=== PATIENT | female | born 1950 | race Caucasian/White ===

== ENCOUNTER 2016-03-10 12:10 | Emergency (ER) | payer MEDICARE, OTHER ==
[2016-03-10 12:28] VITALS: BP 139/81; PULSE 72; TEMP 98.3; BMI 20.1
[2016-03-10] MEDS ORDERED: IBUPROFEN 400 MG TABLET (FP) PO ONE ×2 (12:44→12:52)
[2016-03-10] MEDS ORDERED: CYCLOBENZAPRINE HCL 10 MG TABLET (FP) PO ONE (12:44)
[2016-03-10] MEDS ORDERED: CYCLOBENZAPRINE HCL 10 MG TABLET (FP) ONE (12:52)
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
== END 2016-03-10 14:50 | disposition home or self-care (01) ==
LOC: FER 12:10
DX: M54.2 Cervicalgia (principal); V49.49XA Driver injured in collision with other motor vehicles in traffic accident, initial encounter; Y93.89 Activity, other specified; Y92.410 Unspecified street and highway as the place of occurrence of the external cause; Z87.891 Personal history of nicotine dependence; I10 Essential (primary) hypertension; F32.9 Major depressive disorder, single episode, unspecified; D50.9 Iron deficiency anemia, unspecified
CPT/HCPCS: 70450-TC; 72125-TC; 73070-TC-LT; 73110-TC-LT; 99283-25

== ENCOUNTER 2020-03-20 13:10 | Emergency (ER) | payer OTHER, MEDICARE ==
[2020-03-20 13:22] VITALS: BP 123/83; PULSE 72; TEMP 97.8; BMI 18.8
[2020-03-20] MEDS ORDERED: ACETAMINOPHEN 325 MG TABLET (FP) PO ONE (13:39)
[2020-03-20] MEDS ORDERED: ACETAMINOPHEN 325 MG TABLET (FP) ONE (13:42)
[2020-03-20] MEDS ORDERED: DIPHTH,PERTUSS(ACELL),TET 0.5 ML DISP.SYRIN IM ONE ×2 (13:52→13:55)
[2020-03-20] MEDS ORDERED: BACITRACIN 15 GM TUBE TOPICAL OINTMENT TP ONE (13:52)
[2020-03-20] MEDS ORDERED: LIDOCAINE HCL 1%, 10 MG/ML (50 mL VIAL) SQ ONE (15:13)
[2020-03-20] MEDS ORDERED: LIDOCAINE HCL 1%, 10 MG/ML (20ML VIAL) ONE (15:26)
[2020-03-20] MEDS ORDERED: oxyCODONE HCL 5 MG TABLET PO ONE (15:45)
[2020-03-20] MEDS ORDERED: oxyCODONE HCL 5 MG TABLET ONE (16:02)
== END 2020-03-20 17:50 | disposition home or self-care (01) ==
LOC: FER 13:10
PROC: 3E0234Z Introduction of Serum, Toxoid and Vaccine into Muscle, Percutaneous Approach (ICD-10-PCS; principal; 2020-03-20)
DX: S52.502A Unspecified fracture of the lower end of left radius, initial encounter for closed fracture (principal); S52.615A Nondisplaced fracture of left ulna styloid process, initial encounter for closed fracture; M25.571 Pain in right ankle and joints of right foot; S80.02XA Contusion of left knee, initial encounter; W19.XXXA Unspecified fall, initial encounter
CPT/HCPCS: 73110-TC-LT-FY; 73130-TC-LT-FY; 73610-TC-RT-FY; 73630-TC-RT-FY; 90715; 99284-25

== ENCOUNTER 2022-04-23 23:24 | Emergency (ER) | payer OTHER, MEDICARE ==
[2022-04-23] MEDS ORDERED: LACTATED RINGERS SOLUTION 1,000 ML/1,000 ML INFUS.BAG IV SCH (23:45)
[2022-04-24] VITALS: BP 142/68; PULSE 84; RESP 16; TEMP 97.4; BMI 18.4
[2022-04-24 00:46] LABS: BASO % 0.1 % (0-2.0); EOS % 0.5 % (0-4.5); HEMATOCRIT 45.3 % (32.4-45.2); HEMOGLOBIN 15.4 GM/dL (10.7-15.3); LYMPH % 2.9 % (8-40); MCH 32.3 pg (25.7-33.7); MEAN CELL VOLUME 95.2 fl (80-96); MEAN PLT VOLUME 7.7 fl (7.5-11.1); MONO % 2.2 % (3.8-10.2); NEUT % 94.3 % (42.8-82.8); PLATELET COUNT 375 10^3/uL (134-434); RBC 4.77 M/mm3 (3.60-5.2); RDW 12.8 % (11.6-15.6); WHITE BLOOD COUNT 11.4 K/mm3 (4.0-10.0)
[2022-04-24 00:55] LABS: CALCIUM 8.3 mg/dL (8.5-10.1)
[2022-04-24 00:56] LABS: BLOOD UREA NITROGEN 32.2 mg/dL (7-18)
[2022-04-24 00:59] LABS: BILIRUBIN,TOTAL 0.8 mg/dL (0.2-1); CREATININE 0.9 mg/dL (0.55-1.3); TOT PROT 6.9 g/dl (6.4-8.2)
[2022-04-24 01:52] LABS: ANISOCYTOSIS 0; MACROCYTOSIS 0; TEAR DROP CELLS 1+
== END 2022-04-24 01:57 | disposition home or self-care (01) ==
LOC: FER 23:24
PROC: 3E0337Z Introduction of Electrolytic and Water Balance Substance into Peripheral Vein, Percutaneous Approach (ICD-10-PCS; principal; 2022-04-23)
PROC: 3E0337Z Introduction of Electrolytic and Water Balance Substance into Peripheral Vein, Percutaneous Approach (ICD-10-PCS; 2022-04-23)
DX: R11.2 Nausea with vomiting, unspecified (principal); R73.9 Hyperglycemia, unspecified
CPT/HCPCS: 36415; 71045-TC-FY; 80053; 81003; 85025; 87086; 87186; 93005; 99285-25